=== PATIENT | male | born 1990 | race Caucasian/White ===

== ENCOUNTER 2017-11-18 15:23 | Emergency (ER) | payer SELFPAY | END 2017-11-18 15:55 | disposition home or self-care (01) | LOC: MADERS 15:23 | DX: K03.81 Cracked tooth (principal); K02.9 Dental caries, unspecified | CPT/HCPCS: 99282 ==

== ENCOUNTER 2018-01-09 19:37 | Emergency (ER) | payer SELFPAY ==
[2018-01-09] MEDS ORDERED: Amoxicillin/Potassium Clav 875 MG TAB ONE (19:53)
[2018-01-09] MEDS ORDERED: Ibuprofen 800 MG TAB ONE (19:53)
== END 2018-01-09 20:00 | disposition home or self-care (01) ==
LOC: MADERS 19:37
DX: K02.9 Dental caries, unspecified (principal)
CPT/HCPCS: 99282

== ENCOUNTER 2018-02-25 13:07 | Emergency (ER) | payer SELFPAY | END 2018-02-25 13:45 | disposition home or self-care (01) | LOC: MADERS 13:07 | DX: L30.9 Dermatitis, unspecified (principal) | CPT/HCPCS: 99282 ==